=== PATIENT | male | born 1975 | race Caucasian/White ===

== ENCOUNTER 2017-08-23 11:49 | Emergency (ER) | END 2017-08-23 19:43 | disposition home or self-care (01) ==

== ENCOUNTER 2018-07-25 09:44 | Emergency (ER) | payer MEDICAID ==
[~2018-07-25] VITALS: Ht 165.1 cm; Wt 78.1 kg
[2018-07-25 09:48] VITALS: BP 131/73; PULSE 62; RESP 18; Ht 165.1 cm; Wt 78.1 kg
[2018-07-25] MEDS ORDERED: FLUORESCEIN STRIP BOTH EYES ONE (10:30)
--- NOTE | 2018-07-25 10:44 | ERD ---
ER Documentation Chief Complaint Chief Complaint possible foreign body in left eye wood chip HPI 43-year-old male, previously healthy, presents the emergency department, complaining of 2 days with a foreign body sensation in the left eye after working on fluid and he felt that a piece of food went into his eye. He is complaining of sharp pain, blurred vision. No medications taken at this time, he attempted several times to remove it by himself. ROS All systems reviewed and are negative except as per history of present illness. Medications Home Meds Active Scripts Ibuprofen* (Motrin*) 600 Mg Tab, 600 MG PO Q8, #15 TAB Prov:FIORELLA BOWSER MD 07/25/18 Allergies Allergies: Coded Allergies: No Known Allergy (Unverified , 07/25/18) PMhx/Soc Medical and Surgical Hx: pt denies Medical Hx, pt denies Surgical Hx Hx Alcohol Use: No Hx Substance Use: No Hx Tobacco Use: No Smoking Status: Never smoker Physical Exam Vitals Vital Signs Date Temp Pulse Resp B/P (MAP) Pulse Ox O2 O2 Flow FiO2 Time Delivery Rate 07/25/18 98.0 62 18 131/73 98 09:48 (92) Physical Exam Const: No acute distress Head: Atraumatic Eyes: Left eye with a Corneal foreign body. ENT: Normal External Ears, Nose and Mouth. Neck: Full range of motion. No meningismus. Resp: Clear to auscultation bilaterally Cardio: Regular rate and rhythm, no murmurs Abd: Soft, non tender, non distended. Normal bowel sounds Skin: No petechiae or rashes Back: No midline or flank tenderness Ext: No cyanosis, or edema Neur: Awake and alert Psych: Normal Mood and Affect Results 24 hrs Current Medications Medications Dose Sig/Ike Start Time Status Last (Trade) Ordered Route PRN Stop Time Admin Dose Reason Admin Fluorescein 1 strip ONCE ONCE 07/25/18 DC Sodium BOTH EYES 10:30 (Rhokf-O-Ctny 07/25/18 10:31 p) 2 drop ONCE ONCE 07/25/18 DC 07/25/18 Ciprofloxacin LEFT EYE 11:00 11:02 HCl 07/25/18 11:01 (Ciloxan 0.3% Oph) Procedures/MDM Differential diagnosis include but not limited to: Corneal abrasion, foreign body, corneal ulcer, infection bacterial/viral/fungal, iritis, scleritis. Low suspicion for acute penetrating injury or glaucoma Physical examination and clinical presentation consistent with a left corneal foreign body. Procedure: Under topical anesthesia, the foreign body was carefully removed with a cotton applicator. Patient tolerated well the procedure, no complications. The patient is stable to be treated outpatient and will be discharged home with a Rx for antibiotics and ibuprofen. Some side effects of prescribed medications (headache, rash, nausea, vomiting, diarrhea, drowsiness, bleeding, hypertension, interactions with other medications) were reviewed. The patient was instructed to follow up with the primary care provider in the next 48h. If symptoms persist, worsen or new symptoms develop, then patient should return to the ED immediately. Disclaimer: Inadvertent spelling and grammatical errors are likely due to EHR/dictation software use and do not reflect on the overall quality of patient care. Also, please note that the electronic time recorded on this note does not necessarily reflect the actual time of the patient encounter. Left Departure Diagnosis: Primary Impression: Eye foreign body Condition: Stable Patient Instructions: Corneal Foreign Body, Removed Additional Instructions: Muchas chico por [facility] para prado servicio. Esperamos que en prado visita a la prince de emergencia prado problema medico haya sido solucionado y que se sienta mucho mejor. Para estar seguros que prado mejoria sigue en proceso, le pedimos el favor de hacer kulwant wayne de seguimiento medico con prado doctor primario en los proximos 2-4 ribeiro. Lleve con usted estos documentos y las medicinas recetadas. Si abdi sintomas empeoran, NO SE ESPERE, por favor regrese a prince de emergencia INMEDIATAMENTE. En cheryl que usted no tenga un mdico de atencin primaria: Llame al mdico o clnica comunitaria de referencia que aparece abajo lexii las horas de consultorio para hacer kulwant wayne para que le vean. CLINICAS: [facility] [phone] [facility] [phone] [facility] [phone] [facility] [phone] [facility] [phone] [facility]. [phone] FIORELLA GARDINER MD Jul 25, 2018 10:44
[2018-07-25] MEDS ORDERED: CIPROFLOXACIN 0.3% 2.5 ML OPH LEFT EYE ONE (11:00)
[2018-07-25] MEDS ORDERED: IBUP-1542 PO (11:06)
== END 2018-07-25 11:14 | disposition home or self-care (01) ==
LOC: FTE 09:44
DX: T15.92XA Foreign body on external eye, part unspecified, left eye, initial encounter (principal); X58.XXXA Exposure to other specified factors, initial encounter; Y92.9 Unspecified place or not applicable
CPT/HCPCS: 65220; Z7502; Z7610

== ENCOUNTER 2019-03-01 19:20 | Emergency (ER) | payer MEDICAID ==
[~2019-03-01] VITALS: Ht 168.7 cm; Wt 79.5 kg
[~2019-03-01 19:20] MED LIST: IBUP-1542 PO
[2019-03-01 19:37] VITALS: Ht 168.7 cm; Wt 79.5 kg
[2019-03-01] MEDS ORDERED: KETOROLAC 30 MG INJ IM STA (20:57)
[2019-03-01 22:24] VITALS: BP 108/76; PULSE 61; RESP 18
== END 2019-03-01 22:24 | disposition home or self-care (01) ==
LOC: E/R 19:20
DX: M54.5 Low back pain (principal)
CPT/HCPCS: 72100; 96372; J1885; Z7502